=== PATIENT | male | born 1985 | race African-American/Black ===

== ENCOUNTER 2017-10-30 21:23 | Emergency (ER) | payer OTHER ==
[~2017-10-30] VITALS: Ht 180.3 cm; Wt 96.4 kg
[~2017-10-30 21:23] MED LIST: AMOXICILLIN500 MG OR; COMBIVENT IN; FLEXERIL OR; IBUPROFEN600 MG OR; LORTAB 5 OR; NAPROSYN500 MG OR; NAPROSYN500 MG PO; NO HOME MEDS
[2017-10-30] MEDS ORDERED: WELLBUTRIN SR150 MG PO (21:31)
[2017-10-30 21:54] LABS: HEMATOCRIT 44.2 % (39.0-50.0); IMMATURE GRANULOCYTES 1.2 % (0.0-1.0); MEAN CORPUSCULAR HGB 27.8 pG CALC (26.0-32.0); MEAN CORPUSCULAR HGB CONC 33.9 g/L CALC (32.0-36.0); NEUT# 6.51 thou/uL (1.82-7.42); RED BLOOD COUNT 5.39 mill/uL (4.70-6.10); RED CELL DISTRI WIDTH 12.4 % (11.5-15.5)
[2017-10-30 22:08] LABS: ALBUMIN 4.3 g/dL (3.2-5.0); ALKALINE PHOSPHATASE 64 u/l (38-126); AMYLASE 46 u/l (30-110); ANION GAP 14 (6-22 (CALC)); BILIRUBIN, TOTAL 0.5 mg/dL (0.0-1.4); BUN 9 mg/dL (9-20); BUN/CREATININE RATIO 9 (12-20 (CALC)); CARBON DIOXIDE 28 mmol/l (22-30); CHLORIDE 105 mmol/l (95-108); GFR > 60 ML/MIN (>=60 (CALC)); GFR FOR AFR.AMER. > 60 ML/MIN (>=60 (CALC)); LIPASE 230 u/l (23-300); POTASSIUM 4.2 mmol/l (3.5-5.1); SGOT/AST 22 u/l (17-59); SGPT/ALT 39 u/l (21-72); SODIUM 143 mmol/l (137-146); TOTAL PROTEIN 7.6 g/dL (6.3-8.2)
[2017-10-30 22:38] LABS: URINE BILIRUBIN - DIPSTICK NEGATIVE (NEGATIVE); URINE BLOOD DIPSTICK NEGATIVE (NEGATIVE); URINE COLOR YELLOW; URINE GLUCOSE - DIPSTICK NEGATIVE (NEGATIVE); URINE KETONE NEGATIVE (NEGATIVE); URINE LEUK ESTERASE NEGATIVE (NEGATIVE); URINE NITRITE - DIPSTICK NEGATIVE (Negative); URINE PROTEIN - DIPSTICK NEGATIVE (NEG-TRACE); URINE SPECIFIC GRAVITY 1.015
[2017-10-30 22:39] LABS: URINE CLARITY CLEAR
[2017-10-30] MEDS ORDERED: LOMOTIL2.5 MG PO (23:28)
[2017-10-30] MEDS ORDERED: BACTRIM DS1 TAB PO (23:28)
[2017-10-30] MEDS ORDERED: ZOFRAN ODT4 MG PO (23:28)
[2017-10-30 23:45] VITALS: BP 131/80
== END 2017-10-30 23:45 | disposition home or self-care (01) | DRG 392 ==
LOC: ED 21:23
PROVIDERS: Emergency Medicine
DX: K52.9 Noninfective gastroenteritis and colitis, unspecified (principal); F17.210 Nicotine dependence, cigarettes, uncomplicated; F41.9 Anxiety disorder, unspecified; R10.13 Epigastric pain; R11.10 Vomiting, unspecified; R19.7 Diarrhea, unspecified

== ENCOUNTER 2017-12-01 21:27 | Emergency (ER) | payer SELFPAY ==
[~2017-12-01] VITALS: Ht 180.3 cm; Wt 97.0 kg
[~2017-12-01 21:27] MED LIST changes: +BACTRIM DS1 TAB PO; +LOMOTIL2.5 MG PO; +WELLBUTRIN SR150 MG PO; +ZOFRAN ODT4 MG PO
[2017-12-01] MEDS ORDERED: PENICILLIN V P250 MG PO (21:52)
[2017-12-01] MEDS ORDERED: MOTRIN800 MG PO (21:52)
[2017-12-01] MEDS ORDERED: IBUPROFEN600 MG PO (22:00)
[2017-12-01 22:20] VITALS: BP 136/89
== END 2017-12-01 22:25 | disposition home or self-care (01) | DRG 558 ==
LOC: ED 21:27
DX: M65.311 Trigger thumb, right thumb (principal); F17.210 Nicotine dependence, cigarettes, uncomplicated

== ENCOUNTER 2018-01-05 20:26 | Emergency (ER) | payer MEDICAID ==
[~2018-01-05] VITALS: Ht 180.3 cm; Wt 95.6 kg
[~2018-01-05 20:26] MED LIST changes: +IBUPROFEN600 MG PO; +MOTRIN800 MG PO; +PENICILLIN V P250 MG PO
[2018-01-05] MEDS ORDERED: FAMOTIDINE20 M1 PO (20:37)
[2018-01-05] MEDS ORDERED: TRIAMCINOLON0.025 % EX (20:58)
[2018-01-05 21:07] VITALS: BP 126/87
== END 2018-01-05 21:07 | disposition home or self-care (01) | DRG 607 ==
LOC: ED 20:26
DX: L74.0 Miliaria rubra (principal)

== ENCOUNTER 2018-05-02 23:12 | Emergency (ER) | payer MEDICAID ==
[~2018-05-02] VITALS: Ht 180.3 cm; Wt 95.4 kg
[~2018-05-02 23:12] MED LIST changes: +FAMOTIDINE20 M1 PO; +TRIAMCINOLON0.025 % EX
--- NOTE | 2018-05-02 23:53 | NUR ---
BREATHING TREATMENT GIVEN USING A MOUTH PEICE. BREATHING TECH. FOR GOOD DEPOSITION TO THE LUNGS.
[2018-05-03 00:32] LABS: HEMATOCRIT 42.5 % (39.0-50.0); HEMOGLOBIN 14.7 g/dl (14.0-18.0); IMMATURE GRANULOCYTES 0.3 % (0.0-5.0); MEAN CORPUSCULAR HGB 28.4 pG CALC (26.0-32.0); MEAN CORPUSCULAR HGB CONC 34.6 g/L CALC (32.0-36.0); NEUT# 5.89 thou/uL (1.82-7.42); RED BLOOD COUNT 5.18 mill/uL (4.70-6.10); RED CELL DISTRI WIDTH 12.5 % (11.5-15.5)
[2018-05-03 01:36] LABS: ALBUMIN 3.9 g/dL (3.2-5.0); ALKALINE PHOSPHATASE 51 u/l (38-126); ANION GAP 13 (6-22 (CALC)); BILIRUBIN, TOTAL 0.3 mg/dL (0.0-1.4); BUN 9 mg/dL (9-20); BUN/CREATININE RATIO 11 (12-20 (CALC)); CARBON DIOXIDE 26 mmol/l (22-30); CHLORIDE 104 mmol/l (95-108); CREATININE 0.8 mg/dL (0.7-1.3); GFR > 60 ML/MIN (>=60 (CALC)); GFR FOR AFR.AMER. > 60 ML/MIN (>=60 (CALC)); POTASSIUM 3.7 mmol/l (3.5-5.1); SGOT/AST 24 u/l (17-59); SODIUM 139 mmol/l (137-146); TOTAL PROTEIN 6.7 g/dL (6.3-8.2)
[2018-05-03 01:47] LABS: MYOGLOBIN 36 ng/mL (0 - 121)
[2018-05-03] MEDS ORDERED: ROBITUSSIN AC10 ML PO (02:03)
[2018-05-03] MEDS ORDERED: CEPHALEXIN500 M1 PO (02:03)
[2018-05-03 02:19] VITALS: BP 101/61
[2018-05-03] MEDS ORDERED: NAPROSYN500 MG PO (04:48)
== END 2018-05-03 02:21 | disposition home or self-care (01) ==
LOC: ED 23:12
PROVIDERS: Emergency Medicine
DX: J06.9 Acute upper respiratory infection, unspecified (principal); M94.0 Chondrocostal junction syndrome [Tietze]; F17.210 Nicotine dependence, cigarettes, uncomplicated; R05 Cough; R06.02 Shortness of breath

== ENCOUNTER 2018-11-07 20:36 | Emergency (ER) | payer SELFPAY ==
[~2018-11-07] VITALS: Ht 180.3 cm; Wt 104.5 kg
[~2018-11-07 20:36] MED LIST changes: +CEPHALEXIN500 M1 PO; +ROBITUSSIN AC10 ML PO
[2018-11-07 22:18] LABS: URINE BILIRUBIN - DIPSTICK NEGATIVE (NEGATIVE); URINE BLOOD DIPSTICK NEGATIVE (NEGATIVE); URINE COLOR YELLOW; URINE GLUCOSE - DIPSTICK NEGATIVE (NEGATIVE); URINE KETONE NEGATIVE (NEGATIVE); URINE LEUK ESTERASE NEGATIVE (NEGATIVE); URINE NITRITE - DIPSTICK NEGATIVE (Negative); URINE PROTEIN - DIPSTICK NEGATIVE (NEG-TRACE)
[2018-11-07] MEDS ORDERED: IBUPROFEN600 MG PO (22:58)
[2018-11-07 23:10] VITALS: BP 132/77
== END 2018-11-07 23:12 | disposition home or self-care (01) | DRG 556 ==
LOC: ED 20:36
PROVIDERS: Emergency Medicine
DX: M25.552 Pain in left hip (principal); R10.32 Left lower quadrant pain; F17.210 Nicotine dependence, cigarettes, uncomplicated

== ENCOUNTER 2019-04-11 23:47 | Emergency (ER) | payer OTHER ==
[~2019-04-11] VITALS: Ht 180.3 cm; Wt 100.0 kg
[2019-04-12] MEDS ORDERED: VOLTAREN - GENE75 MG PO (00:40)
[2019-04-12 00:50] VITALS: BP 118/73
== END 2019-04-12 00:49 | disposition home or self-care (01) ==
LOC: ED 23:47
DX: S50.01XA Contusion of right elbow, initial encounter (principal); F17.210 Nicotine dependence, cigarettes, uncomplicated; W22.09XA Striking against other stationary object, initial encounter

== ENCOUNTER 2022-07-06 16:30 | Emergency (ER) | payer OTHER ==
[~2022-07-06] VITALS: Ht 180.3 cm; Wt 96.0 kg
[~2022-07-06 16:30] MED LIST changes: +VOLTAREN - GENE75 MG PO
[2022-07-06] MEDS ORDERED: FLEXERIL5 M1 PO (17:22)
[2022-07-06] MEDS ORDERED: XANAX0.25 MG PO (17:22)
[2022-07-06] MEDS ORDERED: ADDERALL10 MG PO (17:22)
[2022-07-06 18:52] VITALS: BP 125/81
[2022-07-06 19:00] VITALS: BP 103/68
[2022-07-06 19:30] VITALS: BP 104/68
[2022-07-06 20:00] VITALS: BP 109/74
[2022-07-06] MEDS ORDERED: AMOX/K CLAV875 M1 PO ×2 (20:11→20:17)
[2022-07-06] MEDS ORDERED: CETIRIZINE10 MG PO ×2 (20:11→20:17)
[2022-07-06 20:50] VITALS: BP 125/73
[2022-07-06 21:00] VITALS: BP 138/56
== END 2022-07-06 20:40 | disposition home or self-care (01) ==
LOC: ED 16:30
DX: J32.9 Chronic sinusitis, unspecified (principal); F41.9 Anxiety disorder, unspecified; F17.210 Nicotine dependence, cigarettes, uncomplicated; Z20.822 Contact with and (suspected) exposure to COVID-19

== ENCOUNTER 2022-08-29 17:12 | Emergency (ER) | payer OTHER ==
[~2022-08-29] VITALS: Ht 180.3 cm; Wt 81.2 kg
[~2022-08-29 17:12] MED LIST changes: +ADDERALL10 MG PO; +AMOX/K CLAV875 M1 PO; +CETIRIZINE10 MG PO; +FLEXERIL5 M1 PO; +XANAX0.25 MG PO
[2022-08-29] MEDS ORDERED: GABAPENTIN100 MG PO (17:24)
[2022-08-29 17:51] VITALS: BP 121/81
[2022-08-29 18:00] VITALS: BP 114/81
[2022-08-29 18:29] VITALS: BP 114/81
== END 2022-08-29 18:32 | disposition home or self-care (01) ==
LOC: ED 17:12
DX: M54.2 Cervicalgia (principal); F17.200 Nicotine dependence, unspecified, uncomplicated; V49.40XA Driver injured in collision with unspecified motor vehicles in traffic accident, initial encounter

== ENCOUNTER 2023-05-23 17:43 | Emergency (ER) | payer OTHER ==
[2023-05-23] VITALS (8 sets, daily range): BP systolic 114–133; BP diastolic 74–105
[~2023-05-23] VITALS: Ht 180.3 cm; Wt 99.0 kg
[~2023-05-23 17:43] MED LIST changes: +GABAPENTIN100 MG PO
[2023-05-23] MEDS ORDERED: AMOX/K CLAV875 M1 PO (19:02)
[2023-05-23] MEDS ORDERED: MEDDOSEPAK PO (19:02)
[2023-05-23] MEDS ORDERED: PROAIR HFA IN (19:02)
[2023-05-23] MEDS ORDERED: ZYRTEC10 MG PO (19:02)
== END 2023-05-23 19:33 | disposition home or self-care (01) ==
LOC: ED 17:43
DX: J32.9 Chronic sinusitis, unspecified (principal); F41.9 Anxiety disorder, unspecified; Z20.822 Contact with and (suspected) exposure to COVID-19

== ENCOUNTER 2024-02-15 00:01 | Emergency (ER) | payer OTHER ==
[2024-02-15] VITALS (20 sets, daily range): BP systolic 79–126; BP diastolic 46–85
[~2024-02-15] VITALS: Ht 180.3 cm; Wt 108.9 kg
[~2024-02-15 00:01] MED LIST changes: +CLINDAMYCIN300 M1 PO; +MEDDOSEPAK PO; +NAPROXEN500 MG PO; +PROAIR HFA IN; +ZOFRAN4 MG/TAB PO; +ZYRTEC10 MG PO
[2024-02-15 01:21] LABS: URINE BILIRUBIN - DIPSTICK Negative (NEGATIVE); URINE BLOOD DIPSTICK Negative (NEGATIVE); URINE CLARITY Clear; URINE GLUCOSE - DIPSTICK Negative (NEGATIVE); URINE KETONE Negative (NEGATIVE); URINE LEUK ESTERASE Negative (Negative); URINE NITRITE - DIPSTICK Negative (Negative); URINE PROTEIN - DIPSTICK Negative (NEG-TRACE); URINE UROBILINOGEN - DIPSTICK 0.2 E.U./dL (0.2)
[2024-02-15] MEDS ORDERED: KETOROLAC TROMETHAMINE 15 MG/ML SDV IV STA (01:21)
[2024-02-15 01:23] LABS: URINE COLOR Yellow
[2024-02-15 01:26] LABS: BASO% 0.3 % (0-3); EOS% 1.9 % (0-8); HEMATOCRIT 38.4 % (39.0-50.0); IMMATURE GRANULOCYTES 0.3 % (0.0-5.0); LYMPH% 23.8 % (15-41); MEAN CELL VOLUME 79.8 fL CALC (80.0-100.0); MEAN CORPUSCULAR HGB CONC 33.9 g/dL CAL (32.0-36.0); MONO% 6.6 % (2-13); NEUT# 6.26 thou/uL (1.82-7.42); NEUT% 67.1 % (42-76); RED BLOOD COUNT 4.81 mill/uL (4.70-6.10); RED CELL DISTRI WIDTH 12.2 % (11.5-15.5)
[2024-02-15 01:33] LABS: ALBUMIN 4.2 g/dL (3.2-5.0); POTASSIUM 3.8 mmol/l (3.5-5.1); TOTAL PROTEIN 7.2 g/dL (6.3-8.2)
[2024-02-15 01:34] LABS: BILIRUBIN, TOTAL 1.1 mg/dL (0.2-1.3)
[2024-02-15] MEDS ORDERED: CIPROFLOXACN500 MG PO (04:31)
[2024-02-15] MEDS ORDERED: METRONIDAZOLE500 MG PO (04:31)
[2024-02-15] MEDS ORDERED: ZOFRAN4 MG/TAB PO (04:45)
[2024-02-15] MEDS ORDERED: ONDANSETRON HCl 4 MG/2 ML SDV IV ONE (04:45)
== END 2024-02-15 06:00 | disposition home or self-care (01) ==
LOC: ED 00:01
PROVIDERS: Emergency Medicine
DX: K57.32 Diverticulitis of large intestine without perforation or abscess without bleeding (principal)
CPT/HCPCS: Q9967

== ENCOUNTER 2024-03-07 00:58 | Emergency (ER) | payer OTHER ==
[~2024-03-07] VITALS: Ht 180.3 cm; Wt 80.0 kg
[2024-03-07] VITALS (15 sets, daily range): BP systolic 109–129; BP diastolic 51–88
[~2024-03-07 00:58] MED LIST changes: +CIPROFLOXACN500 MG PO; +METRONIDAZOLE500 MG PO
[2024-03-07] MEDS ORDERED: SODIUM CHLORIDE 0.9% 1,000 ML IV STA (01:25)
[2024-03-07] MEDS ORDERED: LOPERAMIDE HCL 2 MG CAP PO ONE (01:30)
[2024-03-07] MEDS ORDERED: DICYCLOMINE HCL 20 MG/2 ML VIAL IM ONE (01:30)
[2024-03-07 01:44] LABS: BASO% 0.5 % (0-3); EOS% 4.1 % (0-8); HEMATOCRIT 40.3 % (39.0-50.0); HEMOGLOBIN 13.4 g/dl (14.0-18.0); IMMATURE GRANULOCYTES 0.6 % (0.0-5.0); LYMPH% 20.4 % (15-41); MEAN CELL VOLUME 79.3 fL CALC (80.0-100.0); MEAN CORPUSCULAR HGB 26.4 pG CALC (26.0-32.0); MEAN CORPUSCULAR HGB CONC 33.3 g/dL CAL (32.0-36.0); MONO% 14.2 % (2-13); NEUT# 5.12 thou/uL (1.82-7.42); NEUT% 60.2 % (42-76); RED BLOOD COUNT 5.08 mill/uL (4.70-6.10); RED CELL DISTRI WIDTH 12.3 % (11.5-15.5)
[2024-03-07 02:02] LABS: URINE BLOOD DIPSTICK Negative (NEGATIVE); URINE COLOR Yellow; URINE GLUCOSE - DIPSTICK Negative (NEGATIVE); URINE KETONE Trace mg/dL (NEGATIVE); URINE LEUK ESTERASE Negative (NEGATIVE); URINE NITRITE - DIPSTICK Negative (Negative); URINE PROTEIN - DIPSTICK 100 mg/dL (NEG-TRACE); URINE SPECIFIC GRAVITY 1.015; URINE UROBILINOGEN - DIPSTICK 0.2 E.U./dL (0.2)
[2024-03-07 02:04] LABS: ACT PARTIAL THROMBO TIME 28.8 SECONDS (20.0-32.5); INTERNATIONAL NORMALIZED RATIO 1.1 RATIO (0.7-1.3)
[2024-03-07 02:11] LABS: ALBUMIN 4.2 g/dL (3.2-5.0); BILIRUBIN, TOTAL 0.9 mg/dL (0.2-1.3); CREATININE 1.1 mg/dL (0.7-1.3); POTASSIUM 3.6 mmol/l (3.5-5.1); PROTHROMBIN TIME 10.5 SECONDS (9.0-12.5); TOTAL PROTEIN 7.8 g/dL (6.3-8.2)
[2024-03-07 02:14] LABS: URINE BACTERIA FEW hpf; URINE EPITHELIAL CELLS FEW EPI/hpf (0-FEW); URINE HYALINE CAST RARE lpf (NONE-RARE); URINE RBC 0-2 RBC/hpf (0-5)
[2024-03-07] MEDS ORDERED: LACTATED RINGER'S 1,000 ML IV ONE (02:30)
[2024-03-07] MEDS ORDERED: VANCOMYCIN HCL 125 MG/CAP PO ONE (05:20)
[2024-03-07] MEDS ORDERED: (None)125 MG PO (05:22)
== END 2024-03-07 05:42 | disposition home or self-care (01) ==
LOC: ED 00:58
PROVIDERS: Family Medicine
DX: A04.72 Enterocolitis due to Clostridium difficile, not specified as recurrent (principal); F41.9 Anxiety disorder, unspecified

== ENCOUNTER 2024-07-28 10:08 | Emergency (ER) | payer SELFPAY ==
[~2024-07-28] VITALS: Ht 180.3 cm; Wt 105.6 kg
[~2024-07-28 10:08] MED LIST changes: +(None)125 MG PO; +MOOD STABILIZER
[2024-07-28 10:14] VITALS: BP 140/95
[2024-07-28 10:31] VITALS: BP 107/81
[2024-07-28 11:00] VITALS: BP 115/79
[2024-07-28] MEDS ORDERED: SODIUM CHLORIDE 0.9% 1,000 ML IV ONE (11:20)
[2024-07-28] MEDS ORDERED: KETOROLAC TROMETHAMINE 30 MG/ML SDV IV ONE (11:20)
[2024-07-28] MEDS ORDERED: METOCLOPRAMIDE HCL 10 MG/2 ML SDV IV ONE (11:20)
[2024-07-28] MEDS ORDERED: FAMOTIDINE 10MG/ML 2ML SDV IV ONE (11:20)
[2024-07-28 11:30] VITALS: BP 112/75
[2024-07-28] MEDS ORDERED: CVS MUCUS EXT1200 MG PO (13:02)
[2024-07-28] MEDS ORDERED: DELSYM30 MG/5 ML PO (13:02)
[2024-07-28] MEDS ORDERED: MOTRIN800 MG PO (13:02)
[2024-07-28 13:10] VITALS: BP 112/75
== END 2024-07-28 13:21 | disposition home or self-care (01) | DRG 866 ==
LOC: ED 10:08
DX: B34.9 Viral infection, unspecified (principal); Z20.822 Contact with and (suspected) exposure to COVID-19
CPT/HCPCS: J2765